=== PATIENT | female | born 1990 | race Caucasian/White ===

== ENCOUNTER 2016-09-16 17:08 | Emergency (ER) | payer OTHER ==
--- NOTE | 2016-09-16 18:25 | RAD ---
Name: RADHA KIRAN Exam: Right foot Comparison: None Clinical history: Trauma. Right second toe pain. Findings: 3 views of the right foot are submitted. Bone density is normal. There is a comminuted fracture of the terminal tuft of the right second toe with mild displacement of the main fracture fragments. The fracture does not extend into the distal interphalangeal joint. There is no dislocation periosteal fracture foreign body. Diffuse soft tissue swelling of the right second toe is present. The remainder of the bones and soft tissues are unremarkable. Impression: Acute comminuted mildly displaced fracture of the terminal tuft of the right second toe
[2016-09-16] MEDS ORDERED: OXYCODONE/ACETAMINOPHEN 5/325 MG TABLET ONE (20:57)
== END 2016-09-16 21:28 | disposition home or self-care (01) ==
LOC: ED 17:08
DX: S92.531A Displaced fracture of distal phalanx of right lesser toe(s), initial encounter for closed fracture (principal); W22.8XXA Striking against or struck by other objects, initial encounter; Y93.01 Activity, walking, marching and hiking; Y92.9 Unspecified place or not applicable